=== PATIENT | male | born 1985 | race African-American/Black ===

== ENCOUNTER → 2017-01-28 | Outpatient (CLI) | payer BC ==
[~2017-01-28] MED LIST: ADDERALL 5 MG TA5 MG PO; ATRIPLA TABLET1 EACH PO; DOXYCYCLINE 10100 MG PO; IBUPROFEN 600600 M1 PO; NOHOMEMEDICATIONS; PENICILLIN VK250 MG PO; PROZAC10 MG PO; TRAMADOL 50 MG50 MG PO
== END ==
LOC: RAD 12:38
DX: J40 Bronchitis, not specified as acute or chronic (principal); J18.9 Pneumonia, unspecified organism; J90 Pleural effusion, not elsewhere classified

== ENCOUNTER → 2017-06-25 | Outpatient (CLI) | payer BC | LOC: ULTRA 14:28 | DX: R22.1 Localized swelling, mass and lump, neck (principal) ==

== ENCOUNTER 2020-12-24 08:16 | Emergency (ER) | payer OTHER ==
[~2020-12-24] VITALS: Ht 167.6 cm; Wt 61.2 kg
[2020-12-24 08:50] LABS: URINE BILIRUBIN NEGATIVE (Negative); URINE BLOOD NEGATIVE (Negative); URINE CLARITY CLEAR; URINE COLOR YELLOW; URINE GLUCOSE-RANDOM* NEGATIVE (Negative); URINE KETONES NEGATIVE (Negative); URINE LEUKOCYTES-REFLEX NEGATIVE (Negative); URINE NITRITE-REFLEX NEGATIVE (Negative); URINE PROTEIN (DIPSTICK) NEGATIVE (Negative); URINE SPECIFIC GRAVITY >= 1.030 (1.005-1.035); URINE UROBILINOGEN 0.2 E.U./dl (0.2-1.0)
[2020-12-24 09:05] LABS: ABSOLUTE NEUTROPHILS 3.7 thou/uL (1.4-8.2); BASOPHILS 0.8 % (0.0-2.0); EOSINOPHILS 2.3 % (0.0-3.0); HEMATOCRIT 35.7 % (42.0-52.0); HEMOGLOBIN 12.2 gm/dL (14.0-18.0); LYMPHOCYTES 31.5 % (24.0-44.0); MCH 31.2 pg (26.0-34.0); MCV 91.8 fL (80.0-100.0); MONOCYTES 11.4 % (1.0-8.0); PLATELET COUNT 281 thou/uL (150-400); RBC 3.89 mil/uL (4.50-6.00); RDW 12.5 % (10.5-14.5); WBC 6.8 thou/uL (4.0-11.0)
[2020-12-24 09:20] LABS: CALCIUM 9.2 mg/dL (8.5-10.1); CREATININE 1.1 mg/dL (0.7-1.3); POTASSIUM 4.1 mmol/L (3.5-5.1)
[2020-12-24 09:28] LABS: ALBUMIN 3.5 g/dL (3.4-5.0); TOTAL BILIRUBIN 0.2 mg/dL (0.2-1.0); TOTAL PROTEIN 7.1 g/dL (6.4-8.2)
[2020-12-24] MEDS ORDERED: VALIUM10 MG PO (09:34)
[2020-12-24] MEDS ORDERED: IBUPROFEN 600600 M1 PO (09:34)
[2020-12-24 10:25] VITALS: BP 108/62
[2020-12-24] MEDS ORDERED: NORCO5 PO (22:08)
[2020-12-24] MEDS ORDERED: METHOCARBAMOL750 MG PO (22:27)
== END 2020-12-24 10:25 | disposition home or self-care (01) ==
LOC: ER 08:16
PROVIDERS: Emergency Medicine
DX: R10.9 Unspecified abdominal pain (principal); R59.1 Generalized enlarged lymph nodes; Z79.1 Long term (current) use of non-steroidal anti-inflammatories (NSAID); Z79.899 Other long term (current) drug therapy; Z21 Asymptomatic human immunodeficiency virus [HIV] infection status

== ENCOUNTER 2020-12-24 21:22 | Emergency (ER) | payer OTHER ==
[~2020-12-24] VITALS: Ht 167.6 cm; Wt 61.2 kg
[~2020-12-24 21:22] MED LIST changes: +VALIUM10 MG PO
[2020-12-24] MEDS ORDERED: NORCO5 PO (22:08)
[2020-12-24] MEDS ORDERED: METHOCARBAMOL750 MG PO (22:27)
[2020-12-24 22:34] VITALS: BP 119/75
== END 2020-12-24 22:34 | disposition home or self-care (01) ==
LOC: ER 21:22
DX: M54.9 Dorsalgia, unspecified (principal); Z79.899 Other long term (current) drug therapy; Z79.1 Long term (current) use of non-steroidal anti-inflammatories (NSAID); Z21 Asymptomatic human immunodeficiency virus [HIV] infection status